=== PATIENT | female | born 1990 | race Caucasian/White ===

== ENCOUNTER 2017-01-20 06:18 | Emergency (ER) | payer BC ==
--- NOTE | 2017-01-20 09:20 | ED NURSING NOTES ---
Clinical Report - Nurses [facility] [place] [address] 01/20/2017 6:18 [id number] TRI[facility] Triage time 06:Jan 20 2017. Acuity: LEVEL 3. Chief Complaint: PELVIC PAIN and VAGINAL DISCHARGE. 06:28 01/20/17. ENRIQUE COMA SCORE: [place] Coma Scale: 15- eyes open spontaneously (4); best verbal response- oriented x 4 (5); best motor response- obeys commands (6). --06:28 Zulay Fairbanks 06:23 01/20/17. BP: 168/88. HR: 97. RR: 18. O2 saturation: 99% on room air. Temp: 98.3 F (oral). Pain level now: 8/10. --06:28 Zulay Fairbanks SEPSIS SCREEN: Sepsis Screen: negative. Infection suspected/documented. Heart rate greater than 90. --06:28 Zulay Fairbanks. Weight: 99.7 kg stated. Height/Length: 62 inches Per Patient. BMI: 40.2. --06:26 Zulay Fairbanks. Medications None. --06:27 Zulay Fairbanks. Allergies Codeine. --06:27 Zulay Fairbanks Amenacycline . --06:27 Zulay Fairbanks. Medication/allergy information source: the patient. --06:28 Zulay Fairbanks. History Arrived by private vehicle. Historian: patient. Accompanied by family. Primary physician ([facility]). Onset. (3 days). ( Patient reports over the last three days she has had pelvic pain. She reports this morning it worsened and she noticed odor and discharge.). 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 PAST MEDICAL HX: Immunizations: up-to-date. Last normal menstrual period- December 01. Sexual history - sexually active. No contraception. SOCIAL HX: Never smoker. Occasional alcohol use. No drug use. No infectious disease exposure. ABUSE ASSESSMENT: No report of abuse. FALL RISK ASSESSMENT: Fall risk assessment completed. No fall risk identified. NUTRITIONAL RISK ASSESSMENT: The nutritional risk assessment revealed no deficiencies. FUNCTIONAL ASSESSMENT: Functional assessment: no impairments noted. LEARNING NEEDS ASSESSMENT: The learning needs assessment revealed no barriers. SKIN INTEGRITY ASSESSMENT: Skin integrity risk assessment completed. No skin integrity risk identified. --:28 Zulay Fairbanks. PROBLEMS: Hypertension. Asthma. --:28 Zulay Fairbanks. ADDITIONAL SURGERIES: no known surgeries. Interventions ID band on patient. To treatment room. --: Zulay Fairbanks. PHYSICAL ASSESSMENT Ambulatory to room. Patient gowned. GENERAL / NEURO / PSYCH: Alert. Oriented X 4. Appears in no acute distress. HEENT: Mucous membranes are pink. RESPIRATORY: Respirations not labored. GI / : A moderate amount of yellow vaginal discharge present. SKIN: Skin is warm and dry. --: Zulay Fairbanks GI / : Abdominal tenderness in the lower abdomen. --:29 Zulay Fairbanks. NURSING PROGRESS NOTES 06:30 01/20/17. Patient gowned. Reassurance given to the patient. Two patient identifiers checked. Call light placed in reach. Side rails up x 1. Bed placed in lowest position. Brakes of bed on. Patient ready for evaluation- chart flagged and ED physician notified. --: Zulay Fairbanks Patient ID band checked for patient name and birthdate: patient confirmed. Instructions provided to collect clean catch urine and patient verbalized understanding. Clean catch urine collected with return of yellow-colored clear urine; sample sent to lab for urinalysis, culture and HCG. Specimen labeled in the presence of the patient. --:30 Zulay Fairbanks PELVIC EXAM: Pelvic exam performed by ED physician. Preparation: pelvic tray; patient placed in lithotomy position. Procedure: speculum and bimanual exam. Specimens collected and sent to lab: GC, chlamydia and wet prep. Status post-procedure: she was stable. Total time of assist / procedure: 15 minutes. --07:15 Zulay Fairbanks Care transferred and report given (Lee Ann). --07:16 Zulay Fairbanks 09:32 01/20/2017 Zithromax PO Tablets 1000 mg given. Allergies verified and confirmed 5 rights. --09:33 Quyen Wan RBatool 09:34 01/20/2017 Rocephin (CefTRIAXone Sodium) IM 250 mg given. Given in the left ventral gluteus. Allergies verified and confirmed 5 rights. --09:34 Quyen Wan R.N. DISPOSITION / DISCHARGE Condition at departure: improved and stable. No learning barriers present. Discharge instructions provided and reviewed with the patient and spouse. Reviewed medication(s) side effects information. Prescription(s) given to the patient. Patient and spouse verbalized understanding. Written instructions provided in Faroese. The patient was discharged home and accompanied by spouse. She left the Emergency Department ambulatory and via private vehicle. Spouse driving. --09:43 Susan Reddy R.N. 09:42 01/20/17. BP: 153/90. HR: 84. RR: 16. O2 saturation: 97%. Temp: 98 F. Pain level now: 02/05. --09:43 Susan Reddy R.N. Departure time: 1000. --10:29 Susan Reddy R.N. Locked/Released at 01/20/2017 10:29 by Susan Reddy R.N.
--- NOTE | 2017-01-20 09:20 | ED CLINICAL REPORT ---
Clinical Report - Physicians/Mid Levels [facility] [address] [place] [address] 01/20/2017 6:18 Patient: AIME BIRD Time Seen: 06:52. Arrived- By private vehicle. Historian- patient. HISTORY OF PRESENT ILLNESS Chief Complaint: PELVIC PAIN. This started about 3 days ago and is still present and now worse. At its maximum, severity described as moderate. When seen in the E.D., severity described as mild. Modifying factors- worsened by movement. Not relieved by anything. It is described as "pain" and it is described as located in the suprapubic area and in the left pelvis. No nausea, loss of appetite, vomiting or diarrhea. (Patient states the pain started about 3 days ago but got worse last night. Patient began to notice that her vaginal discharge has become heavier and developed a peculiar odor. Patient has not had any vaginal bleeding. She is sexually active with her and is not aware of any STD exposure. She has no history of pelvic inflammatory disease or any STDs.). Similar symptoms previously: ( Patient states that she has had this kind of pain with her ovarian cysts previously; however she has not had abnormal discharge before.). Recent medical care: Not recently seen/assessed. REVIEW OF SYSTEMS No constipation, black stools, hematemesis, difficulty with urination or pain with urination. No urinary frequency, bloody stools, fever, headache or sore throat. No blurred vision, chest pain, difficulty breathing, cough or joint pain. No skin rash, chills or back pain. The patient missed her last period. The patient chronically experiences irregular periods. Denies current . All systems otherwise negative, except as recorded above. PAST HISTORY Problems: Hypertension. Asthma. Additional Surgeries: no known surgeries. Medications: None. Allergies: Amenacycline . Codeine. SOCIAL HISTORY Never smoker. Occasional alcohol use. No drug use. ADDITIONAL NOTES The nursing notes have been reviewed. PHYSICAL EXAM Vital Signs: 01/20/2017 06:23 BP: 168/88. HR: 97. RR: 18. O2 saturation: 99%. Temp: 98.3 F. Pain level now: 04/07. Have been reviewed. Appearance: Alert. Oriented X3. No acute distress. Eyes: Pupils equal, round and reactive to light. Eyes normal inspection. ENT: Nose normal. Neck: Normal inspection. CVS: Normal heart rate and rhythm. Heart sounds normal. Pulses normal. Respiratory: No respiratory distress. Breath sounds normal. Abdomen: Soft. Moderate tenderness in the left side of the abdomen (Tenderness is worse in the left lower quadrant.). No guarding or rebound tenderness. No organomegaly. No mass. Moderately obese. Back: Normal inspection. No CVA tenderness. : Normal external exam. A moderate amount of thick and yellow vaginal discharge present. No malodorous vaginal discharge. Moderate right adnexal tenderness; cervical motion tenderness. No left adnexal tenderness. Skin: Skin warm and dry. Normal skin color. No rash. Normal skin turgor. Extremities: Extremities exhibit normal ROM. No lower extremity edema. Neuro: (grossly intact.). LABS, X-RAYS, AND EKG Pelvic Sonogram: Uterus normal. An ovarian cyst is present. No free fluid. No free fluid. No intrauterine . Study type: bedside. Prior studies were not available for comparison. Laboratory Tests: UA-Culture if indicated: (KAYCE: 01/20/2017 06:24) ( [facility] 01/20/2017 07:53) IP Test Result Flag Units (Reference) URINE COLOR YELLOW URINE APPEARANCE CLEAR URINE GLUCOSE NEGATIVE (NEGATIVE) URINE BILIRUBIN NEGATIVE (NEGATIVE) URINE KETONE NEGATIVE (NEGATIVE) URINE SPECIFIC GRAVITY 1.020 (1.010-1.030) URINE PH 5.5 (5.0-8.0) URINE PROTEIN NEGATIVE (NEGATIVE) URINE UROBILINOGEN 0.2 EU/dL (0.2-1.0) URINE NITRITE NEGATIVE (NEGATIVE) URINE BLOOD NEGATIVE (NEGATIVE) URINE LEUK ESTERASE NEGATIVE (NEGATIVE) Urine: (KAYCE: 01/20/2017 06:24) ( [facility] 01/20/2017 07:53) Final results Test Result Flag Units (Reference) URINE NEGATIVE Wet Prep: (KAYCE: 01/20/2017 07:05) ( [facility] 01/20/2017 07:36) Final results SPECIMEN DESCRIPTION: SWAB Test Result Flag Units (Reference) WET MOUNT CLUE CELLS:: NONE EPITHELIAL CELLS: FEW -- SOURCE?: VAG WHITE BLOOD CELLS: MODERATE TRICHOMONAS:: NONE -- YEAST:: NONE . Pulse Oximetry: 01/20/2017 06:23 O2 saturation: 99%. (FIO2 - room air). Interpretation: normal. PROGRESS AND PROCEDURES Course of Care: The patient was low risk for STD exposure given that she was monogamous with her . However I did feel that she should be worked up anyway given her symptoms so a wet mount and GC chlamydia swab were sent. Patient declined any analgesia in the emergency department, stating that right now her pain is doing a little better. UA and US were unremarkable, other than a small L ovarian cyst. Wet mount also showed no infection. I did treat pt with Rocephin and Zithromax, based on the pt's CMT and c/o increased and malodorous vaginal d/c. Patient and spouse counseled in person regarding the patient's stable condition, test results, diagnosis and need for follow-up. Concerns were addressed. Old medical records reviewed. Disposition: Discharged. Condition: stable. CLINICAL IMPRESSION Single simple left ovarian cyst. No torsion of ovary. Possible acute pelvic inflammatory disease. No peritonitis. INSTRUCTIONS Drink plenty of fluids. Warnings: GENERAL WARNINGS: Return or contact your physician immediately if your condition worsens or changes unexpectedly, if not improving as expected, or if other problems arise. Prescription Medications: Hydrocodone/APAP 5mg / 325mg: take 1 orally every 6 hours as needed for pain. Dispense ten (10). No refill. Understanding of the discharge instructions verbalized by patient. Follow-up with: Sam Ramos MD, Obstetrics/Gynecology, , [facility], [address] [place] [address] Follow up as needed. (Electronically signed by Madison Peacock MD 01/24/2017 15:08)
--- NOTE | 2017-01-20 09:20 | ED CLINICAL REPORT ---
Clinical Report - Physicians/Mid Levels [facility] [address] [place] [address] 01/20/2017 6:18 Patient: AIME BIRD Time Seen: 06:52. Arrived- By private vehicle. Historian- patient. HISTORY OF PRESENT ILLNESS Chief Complaint: PELVIC PAIN. This started about 3 days ago and is still present and now worse. At its maximum, severity described as moderate. When seen in the E.D., severity described as mild. Modifying factors- worsened by movement. Not relieved by anything. It is described as "pain" and it is described as located in the suprapubic area and in the left pelvis. No nausea, loss of appetite, vomiting or diarrhea. (Patient states the pain started about 3 days ago but got worse last night. Patient began to notice that her vaginal discharge has become heavier and developed a peculiar odor. Patient has not had any vaginal bleeding. She is sexually active with her and is not aware of any STD exposure. She has no history of pelvic inflammatory disease or any STDs.). Similar symptoms previously: ( Patient states that she has had this kind of pain with her ovarian cysts previously; however she has not had abnormal discharge before.). Recent medical care: Not recently seen/assessed. REVIEW OF SYSTEMS No constipation, black stools, hematemesis, difficulty with urination or pain with urination. No urinary frequency, bloody stools, fever, headache or sore throat. No blurred vision, chest pain, difficulty breathing, cough or joint pain. No skin rash, chills or back pain. The patient missed her last period. The patient chronically experiences irregular periods. Denies current . All systems otherwise negative, except as recorded above. PAST HISTORY Problems: Hypertension. Asthma. Additional Surgeries: no known surgeries. Medications: None. Allergies: Amenacycline . Codeine. SOCIAL HISTORY Never smoker. Occasional alcohol use. No drug use. ADDITIONAL NOTES The nursing notes have been reviewed. PHYSICAL EXAM Vital Signs: 01/20/2017 06:23 BP: 168/88. HR: 97. RR: 18. O2 saturation: 99%. Temp: 98.3 F. Pain level now: 04/07. Have been reviewed. Appearance: Alert. Oriented X3. No acute distress. Eyes: Pupils equal, round and reactive to light. Eyes normal inspection. ENT: Nose normal. Neck: Normal inspection. CVS: Normal heart rate and rhythm. Heart sounds normal. Pulses normal. Respiratory: No respiratory distress. Breath sounds normal. Abdomen: Soft. Moderate tenderness in the left side of the abdomen (Tenderness is worse in the left lower quadrant.). No guarding or rebound tenderness. No organomegaly. No mass. Moderately obese. Back: Normal inspection. No CVA tenderness. : Normal external exam. A moderate amount of thick and yellow vaginal discharge present. No malodorous vaginal discharge. Moderate right adnexal tenderness; cervical motion tenderness. No left adnexal tenderness. Skin: Skin warm and dry. Normal skin color. No rash. Normal skin turgor. Extremities: Extremities exhibit normal ROM. No lower extremity edema. Neuro: (grossly intact.). LABS, X-RAYS, AND EKG Pelvic Sonogram: Uterus normal. An ovarian cyst is present. No free fluid. No free fluid. No intrauterine . Study type: bedside. Prior studies were not available for comparison. Laboratory Tests: UA-Culture if indicated: (KAYCE: 01/20/2017 06:24) ( [facility] 01/20/2017 07:53) IP Test Result Flag Units (Reference) URINE COLOR YELLOW URINE APPEARANCE CLEAR URINE GLUCOSE NEGATIVE (NEGATIVE) URINE BILIRUBIN NEGATIVE (NEGATIVE) URINE KETONE NEGATIVE (NEGATIVE) URINE SPECIFIC GRAVITY 1.020 (1.010-1.030) URINE PH 5.5 (5.0-8.0) URINE PROTEIN NEGATIVE (NEGATIVE) URINE UROBILINOGEN 0.2 EU/dL (0.2-1.0) URINE NITRITE NEGATIVE (NEGATIVE) URINE BLOOD NEGATIVE (NEGATIVE) URINE LEUK ESTERASE NEGATIVE (NEGATIVE) Urine: (KAYCE: 01/20/2017 06:24) ( [facility] 01/20/2017 07:53) Final results Test Result Flag Units (Reference) URINE NEGATIVE Wet Prep: (KAYCE: 01/20/2017 07:05) ( [facility] 01/20/2017 07:36) Final results SPECIMEN DESCRIPTION: SWAB Test Result Flag Units (Reference) WET MOUNT CLUE CELLS:: NONE EPITHELIAL CELLS: FEW -- SOURCE?: VAG WHITE BLOOD CELLS: MODERATE TRICHOMONAS:: NONE -- YEAST:: NONE . Pulse Oximetry: 01/20/2017 06:23 O2 saturation: 99%. (FIO2 - room air). Interpretation: normal. PROGRESS AND PROCEDURES Course of Care: The patient was low risk for STD exposure given that she was monogamous with her . However I did feel that she should be worked up anyway given her symptoms so a wet mount and GC chlamydia swab were sent. Patient declined any analgesia in the emergency department, stating that right now her pain is doing a little better. UA and US were unremarkable, other than a small L ovarian cyst. Wet mount also showed no infection. I did treat pt with Rocephin and Zithromax, based on the pt's CMT and c/o increased and malodorous vaginal d/c. Patient and spouse counseled in person regarding the patient's stable condition, test results, diagnosis and need for follow-up. Concerns were addressed. Old medical records reviewed. Disposition: Discharged. Condition: stable. CLINICAL IMPRESSION Single simple left ovarian cyst. No torsion of ovary. Possible acute pelvic inflammatory disease. No peritonitis. INSTRUCTIONS Drink plenty of fluids. Warnings: GENERAL WARNINGS: Return or contact your physician immediately if your condition worsens or changes unexpectedly, if not improving as expected, or if other problems arise. Prescription Medications: Hydrocodone/APAP 5mg / 325mg: take 1 orally every 6 hours as needed for pain. Dispense ten (10). No refill. Understanding of the discharge instructions verbalized by patient. Follow-up with: Sam Ramos MD, Obstetrics/Gynecology, , [facility], [address] [place] [address] Follow up as needed. (Electronically signed by Madison Peacock MD 01/24/2017 15:08)
--- NOTE | 2017-01-20 09:20 | ED ORDER SUMMARY ---
..... Patient: AIME BIRD OrderSheet [facility] VisitID: [id number] [place] [address] 26y, F Registration Date/Time: 01/20/2017 ORDER SHEET Weight: 99.7 kg (stated) Allergies: Codeine, Amenacycline GENERAL ORDERS: GC/Chlamydia (Cervix) (swab) Urgent (07:01/20/2017 Adrien HAIR) (7:49 CLARISAoeabdiaziz) Wet Prep (Vaginal) (swab) Urgent (07:01/20/2017 Adrien HAIR) (7:49 CLARISAoeabdiaziz) UA-Culture if indicated Urgent (:01/20/2017 Adrien HAIR) (Ack 7:15 HSoule) (7:49 CLARISAoeabdiaziz) Urine Urgent (07:01/20/2017 Adrien HAIR) (7:49 CLARISAoeabdiaziz) US Pelvic Complete w Transvag Urgent (08:21 01/20/2017 Adrien HAIR) (Ack 8:22 Riaz) (9:34 Sally R.N.) MEDICATION ORDERS: Rocephin IM 250 mg (NOW) (09:18 01/20/2017 Adrien HAIR) (Ack 9:20 Sally R.N.) (9:34 Sally R.N.) Zithromax PO 1000 mg (NOW) (09:01/20/2017 Adrien HAIR) (Ack 9:20 Sally R.N.) (9:32 Sally R.N.) IV FLUIDS: ORDER SHEET NOTES: [Electronically signed by Susan Reddy R.N. (10:01/20/2017)] [Electronically signed by Madison Peacock MD (15:08 01/24/2017)] [Electronically locked/signed by Susan Reddy R.N. (:01/20/2017)]
--- NOTE | 2017-01-20 09:20 | ED ORDER SUMMARY ---
..... Patient: AIME BIRD OrderSheet [facility] VisitID: [id number] [place] [address] 26y, F Registration Date/Time: 01/20/2017 ORDER SHEET Weight: 99.7 kg (stated) Allergies: Codeine, Amenacycline GENERAL ORDERS: GC/Chlamydia (Cervix) (swab) Urgent (07:01/20/2017 Adrien HAIR) (7:49 CLARISAoeabdiaziz) Wet Prep (Vaginal) (swab) Urgent (07:01/20/2017 Adrien HAIR) (7:49 CLARISAoeabdiaziz) UA-Culture if indicated Urgent (:01/20/2017 Adrien HAIR) (Ack 7:15 HSoule) (7:49 CLARISAoeabdiaziz) Urine Urgent (07:01/20/2017 Adrien HAIR) (7:49 CLARISAoeabdiaziz) US Pelvic Complete w Transvag Urgent (08:21 01/20/2017 Adrien HAIR) (Ack 8:22 Riaz) (9:34 Sally R.N.) MEDICATION ORDERS: Rocephin IM 250 mg (NOW) (09:18 01/20/2017 Adrien HAIR) (Ack 9:20 Sally R.N.) (9:34 Sally R.N.) Zithromax PO 1000 mg (NOW) (09:01/20/2017 Adrien HAIR) (Ack 9:20 Sally R.N.) (9:32 Sally R.N.) IV FLUIDS: ORDER SHEET NOTES: [Electronically signed by Susan Reddy R.N. (10:01/20/2017)] [Electronically signed by Madison Peacock MD (15:08 01/24/2017)] [Electronically locked/signed by Susan Reddy R.N. (:01/20/2017)]
--- NOTE | 2017-01-20 09:20 | ED NURSING NOTES ---
Clinical Report - Nurses [facility] [place] [address] 01/20/2017 6:18 [facility]IRD [id number] TRIAGE Triage time 06:Jan 20 2017. Acuity: LEVEL 3. Chief Complaint: PELVIC PAIN and VAGINAL DISCHARGE. 06:28 01/20/17. ENRIQUE COMA SCORE: [place] Coma Scale: 15- eyes open spontaneously (4); best verbal response- oriented x 4 (5); best motor response- obeys commands (6). --06:28 Zulay Fairbanks 06:23 01/20/17. BP: 168/88. HR: 97. RR: 18. O2 saturation: 99% on room air. Temp: 98.3 F (oral). Pain level now: 8/10. --06:28 Zulay Fairbanks SEPSIS SCREEN: Sepsis Screen: negative. Infection suspected/documented. Heart rate greater than 90. --06:28 Zulay Fairbanks. Weight: 99.7 kg stated. Height/Length: 62 inches Per Patient. BMI: 40.2. --06:26 Zulay Fairbanks. Medications None. --06:27 Zulay Fairbanks. Allergies Codeine. --06:27 Zulay Fairbanks Amenacycline . --06:27 Zulay Fairbanks. Medication/allergy information source: the patient. --06:28 Zulay Fairbanks. History Arrived by private vehicle. Historian: patient. Accompanied by family. Primary physician ([facility]). Onset. (3 days). ( Patient reports over the last three days she has had pelvic pain. She reports this morning it worsened and she noticed odor and discharge.). 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 PAST MEDICAL HX: Immunizations: up-to-date. Last normal menstrual period- December 01. Sexual history - sexually active. No contraception. SOCIAL HX: Never smoker. Occasional alcohol use. No drug use. No infectious disease exposure. ABUSE ASSESSMENT: No report of abuse. FALL RISK ASSESSMENT: Fall risk assessment completed. No fall risk identified. NUTRITIONAL RISK ASSESSMENT: The nutritional risk assessment revealed no deficiencies. FUNCTIONAL ASSESSMENT: Functional assessment: no impairments noted. LEARNING NEEDS ASSESSMENT: The learning needs assessment revealed no barriers. SKIN INTEGRITY ASSESSMENT: Skin integrity risk assessment completed. No skin integrity risk identified. --:28 Zulay Fairbanks. PROBLEMS: Hypertension. Asthma. --:28 Zulay Fairbanks. ADDITIONAL SURGERIES: no known surgeries. Interventions ID band on patient. To treatment room. --: Zulay Fairbanks. PHYSICAL ASSESSMENT Ambulatory to room. Patient gowned. GENERAL / NEURO / PSYCH: Alert. Oriented X 4. Appears in no acute distress. HEENT: Mucous membranes are pink. RESPIRATORY: Respirations not labored. GI / : A moderate amount of yellow vaginal discharge present. SKIN: Skin is warm and dry. --: Zualy Fairbanks GI / : Abdominal tenderness in the lower abdomen. --:29 Zulay Fairbanks. NURSING PROGRESS NOTES 06:30 01/20/17. Patient gowned. Reassurance given to the patient. Two patient identifiers checked. Call light placed in reach. Side rails up x 1. Bed placed in lowest position. Brakes of bed on. Patient ready for evaluation- chart flagged and ED physician notified. --: Zulay Fairbanks Patient ID band checked for patient name and birthdate: patient confirmed. Instructions provided to collect clean catch urine and patient verbalized understanding. Clean catch urine collected with return of yellow-colored clear urine; sample sent to lab for urinalysis, culture and HCG. Specimen labeled in the presence of the patient. --:30 Zulay Fairbanks PELVIC EXAM: Pelvic exam performed by ED physician. Preparation: pelvic tray; patient placed in lithotomy position. Procedure: speculum and bimanual exam. Specimens collected and sent to lab: GC, chlamydia and wet prep. Status post-procedure: she was stable. Total time of assist / procedure: 15 minutes. --07:15 Zulay Fairbanks Care transferred and report given (Lee Ann). --07:16 Zulay Fairbanks 09:32 01/20/2017 Zithromax PO Tablets 1000 mg given. Allergies verified and confirmed 5 rights. --09:33 Quyen Wan RBatool 09:34 01/20/2017 Rocephin (CefTRIAXone Sodium) IM 250 mg given. Given in the left ventral gluteus. Allergies verified and confirmed 5 rights. --09:34 Quyen Wan R.N. DISPOSITION / DISCHARGE Condition at departure: improved and stable. No learning barriers present. Discharge instructions provided and reviewed with the patient and spouse. Reviewed medication(s) side effects information. Prescription(s) given to the patient. Patient and spouse verbalized understanding. Written instructions provided in Persian. The patient was discharged home and accompanied by spouse. She left the Emergency Department ambulatory and via private vehicle. Spouse driving. --09:43 Susan Reddy R.N. 09:42 01/20/17. BP: 153/90. HR: 84. RR: 16. O2 saturation: 97%. Temp: 98 F. Pain level now: 02/05. --09:43 Susan Reddy R.N. Departure time: 1000. --10:29 Susan Reddy R.N. Locked/Released at 01/20/2017 10:29 by Susan Reddy R.N.
--- NOTE | 2017-01-20 09:40 | DIAGNOSTIC IMAGING REPORT ---
PROCEDURE: US COMPLETE PELVIC W/TRANSVAG INDICATION: Left pelvic pain. TECHNIQUE: Transabdominal and endovaginal jaquez scale and color Doppler sonographic images of the female pelvis were obtained. COMPARISON: None. FINDINGS: TRANSABDOMINAL SCANS: Bladder and kidneys are unremarkable. No pelvic mass. TRANSVAGINAL SCANS: Anteverted uterus measures 4.6 x 2.9 x 4.1 cm. Myometrium is unremarkable. Endometrium measures 5.2 mm. Left ovary measures 4.7 x 4.2 x 3 cm with a 3.5 cm hypoechoic mass with internal echoes consistent with a hemorrhagic cyst with adjacent trace free fluid. Right ovary measures 2.7 x 2.2 x 1.5 cm. Vascular flow to both ovaries. IMPRESSION: 1. 3.5 cm left ovarian hemorrhagic cyst with trace free fluid
--- NOTE | 2017-01-24 15:08 | ED DISCHARGE INSTRUCTIONS ---
Patient: AIME BIRD General Instructions [facility] VisitID: [id number] [place] [id number] 26y, F Registration Date/Time: 01/20/2017 Single simple left ovarian cyst. No torsion of ovary. INSTRUCTIONS Drink plenty of fluids. Warnings: GENERAL WARNINGS: Return or contact your physician immediately if your condition worsens or changes unexpectedly, if not improving as expected, or if other problems arise. Prescription Medications: Hydrocodone/APAP 5mg / 325mg: take 1 orally every 6 hours as needed for pain. Dispense ten (10). No refill. Understanding of the discharge instructions verbalized by patient. Follow-up with: Sam Ramos MD, Obstetrics/Gynecology, , [facility], [address] [place] [id number] Follow up as needed. ADDITIONAL INFORMATION Ovarian Cyst The ovary is a small organ located on each side of the uterus. During each menstrual cycle a tiny egg sac forms in the ovary. If the egg is released but does not occur, this sac usually dissolves. Sometimes, the sac may fill with fluid. It then enlarges into a painful cyst. Usually the cyst will rupture or shrink on its own. In either case, the pain gradually goes away over the next 1-3 days. If the cyst does not shrink or rupture, it may cause continued pain. Home Care: Rest in bed and avoid heavy exertion until you are feeling better. Heat to the lower abdomen usually helps (heating pad or hot packs -- a small towel soaked in hot water). You may use acetaminophen (Tylenol) or ibuprofen (Motrin, Advil) to control pain, unless another pain medicine was prescribed. [NOTE: If you have chronic liver or kidney disease or ever had a stomach ulcer or GI bleeding, talk with your doctor before using these medicines.] Follow Up: See your doctor within the next 2-3 days if your pain doesnt improve. Otherwise, follow up with your doctor after your next period or as directed by our staff. Get Prompt Medical Attention if any of the following occur: Pain worsens or fails to respond to the above measures Fever of 100.4F (38C) or higher, or as directed by your healthcare provider Heavy vaginal bleeding (soaking one pad an hour for three hours) You feel weak or dizzy Fainting Passage of a pink or jaquez tissue with menstrual bleeding Pelvic Pain, Uncertain Cause Based on your visit today, the exact cause of your pelvic pain is not certain. But your condition does not appear to be serious at this time. However, the signs of a serious problem may take more time to appear. Therefore, it is important for you to watch for any new symptoms or worsening of your condition. Home Care: Rest until you are feeling better. Avoid sexual intercourse until your pain goes away. You may use acetaminophen (Tylenol) or ibuprofen (Motrin, Advil) to control pain, unless another medicine was prescribed. [NOTE: If you have chronic liver or kidney disease or ever had a stomach ulcer or GI bleeding, talk with your doctor before using these medicines.] Follow Up with your doctor as advised. If a culture test was taken, call in two days for the results. If the culture is positive, you will be given more advice at that time. Otherwise, follow-up with your doctor or this facility as instructed. Get Prompt Medical Attention if any of the following occur: Fever of 100.4F (38C) or higher, or as directed by your healthcare provider Vaginal discharge Worsening pain Weakness, dizziness or fainting Unexpected vaginal bleeding or passage of jaquez or white tissue from the vagina Pain that moves to the right lower abdomen You have been given the following additional information: Ovarian Cyst Pelvic Pain, Unknown Cause (Electronically signed by Madison Peacock MD 01/24/2017 15:08)
--- NOTE | 2017-01-24 15:08 | ED MED RECONCILIATION SUMMARY ---
Patient: AIME BIRD Medication Reconciliation Report [facility] VisitID: [id number] [address] [place] [address] 26y, F Registration Date/Time: 01/20/2017 Weight: 99.7 kg Height/Length: 62 in. BMI: 40.2 ALLERGIES: Amenacycline , Codeine The patient's Home Medications are listed below: NONE. The source(s) of the original Home Medication information: patient The following Medications were given to the patient in the Emergency Department: Zithromax [PO] PO 1000 mg, administered: 01/20/2017 9:32:00 AM Rocephin [IM] IM 250 mg, administered: 01/20/2017 9:34:00 AM The following Medications were prescribed to the patient: Hydrocodone/APAP 5mg / 325mg: take 1 orally every 6 hours as needed for pain. Dispense ten (10). No refill. -- Madison Peacock MD
--- NOTE | 2017-01-24 15:08 | ED MAR SUMMARY ---
..... Medication Administration Record [facility] [address] [place] [address] Patient: AIME BIRD Visit ID: [id number] 26y, F Weight: 99.7 kg Height/Length: 62 in BMI: 40.2 ALLERGIES: Amenacycline , Codeine Given 09:32 01/20/2017 Quyen Wan, RLottieN. Medication Administered: ZITHROMAX [PO], Dose: 1000 mg Tablets PO. Medication Ordered: Zithromax PO 1000 mg (NOW). Given 09:34 01/20/2017 Quyen Wan, R.N. Medication Administered: ROCEPHIN [IM] (CEFTRIAXONE SODIUM), Dose: 250 mg IM. Medication Ordered: Rocephin IM 250 mg (NOW).
--- NOTE | 2017-01-24 15:08 | ED DISCHARGE INSTRUCTIONS ---
Patient: AIME BIRD General Instructions [facility] VisitID: [id number] [place] [id number] 26y, F Registration Date/Time: 01/20/2017 Single simple left ovarian cyst. No torsion of ovary. INSTRUCTIONS Drink plenty of fluids. Warnings: GENERAL WARNINGS: Return or contact your physician immediately if your condition worsens or changes unexpectedly, if not improving as expected, or if other problems arise. Prescription Medications: Hydrocodone/APAP 5mg / 325mg: take 1 orally every 6 hours as needed for pain. Dispense ten (10). No refill. Understanding of the discharge instructions verbalized by patient. Follow-up with: Sam Ramos MD, Obstetrics/Gynecology, , [facility], [address] [place] [address] Follow up as needed. ADDITIONAL INFORMATION Ovarian Cyst The ovary is a small organ located on each side of the uterus. During each menstrual cycle a tiny egg sac forms in the ovary. If the egg is released but does not occur, this sac usually dissolves. Sometimes, the sac may fill with fluid. It then enlarges into a painful cyst. Usually the cyst will rupture or shrink on its own. In either case, the pain gradually goes away over the next 1-3 days. If the cyst does not shrink or rupture, it may cause continued pain. Home Care: Rest in bed and avoid heavy exertion until you are feeling better. Heat to the lower abdomen usually helps (heating pad or hot packs -- a small towel soaked in hot water). You may use acetaminophen (Tylenol) or ibuprofen (Motrin, Advil) to control pain, unless another pain medicine was prescribed. [NOTE: If you have chronic liver or kidney disease or ever had a stomach ulcer or GI bleeding, talk with your doctor before using these medicines.] Follow Up: See your doctor within the next 2-3 days if your pain doesnt improve. Otherwise, follow up with your doctor after your next period or as directed by our staff. Get Prompt Medical Attention if any of the following occur: Pain worsens or fails to respond to the above measures Fever of 100.4F (38C) or higher, or as directed by your healthcare provider Heavy vaginal bleeding (soaking one pad an hour for three hours) You feel weak or dizzy Fainting Passage of a pink or jaquez tissue with menstrual bleeding Pelvic Pain, Uncertain Cause Based on your visit today, the exact cause of your pelvic pain is not certain. But your condition does not appear to be serious at this time. However, the signs of a serious problem may take more time to appear. Therefore, it is important for you to watch for any new symptoms or worsening of your condition. Home Care: Rest until you are feeling better. Avoid sexual intercourse until your pain goes away. You may use acetaminophen (Tylenol) or ibuprofen (Motrin, Advil) to control pain, unless another medicine was prescribed. [NOTE: If you have chronic liver or kidney disease or ever had a stomach ulcer or GI bleeding, talk with your doctor before using these medicines.] Follow Up with your doctor as advised. If a culture test was taken, call in two days for the results. If the culture is positive, you will be given more advice at that time. Otherwise, follow-up with your doctor or this facility as instructed. Get Prompt Medical Attention if any of the following occur: Fever of 100.4F (38C) or higher, or as directed by your healthcare provider Vaginal discharge Worsening pain Weakness, dizziness or fainting Unexpected vaginal bleeding or passage of jaquez or white tissue from the vagina Pain that moves to the right lower abdomen You have been given the following additional information: Ovarian Cyst Pelvic Pain, Unknown Cause (Electronically signed by Madison Peacock MD 01/24/2017 15:08)
--- NOTE | 2017-01-24 15:08 | ED MED RECONCILIATION SUMMARY ---
Patient: AIME BIRD Medication Reconciliation Report [facility] VisitID: [id number] [address] [place] [address] 26y, F Registration Date/Time: 01/20/2017 Weight: 99.7 kg Height/Length: 62 in. BMI: 40.2 ALLERGIES: Amenacycline , Codeine The patient's Home Medications are listed below: NONE. The source(s) of the original Home Medication information: patient The following Medications were given to the patient in the Emergency Department: Zithromax [PO] PO 1000 mg, administered: 01/20/2017 9:32:00 AM Rocephin [IM] IM 250 mg, administered: 01/20/2017 9:34:00 AM The following Medications were prescribed to the patient: Hydrocodone/APAP 5mg / 325mg: take 1 orally every 6 hours as needed for pain. Dispense ten (10). No refill. -- Madison Peacock MD
--- NOTE | 2017-01-24 15:08 | ED MAR SUMMARY ---
..... Medication Administration Record [facility] [address] [place] [address] Patient: AIME BIRD Visit ID: [id number] 26y, F Weight: 99.7 kg Height/Length: 62 in BMI: 40.2 ALLERGIES: Amenacycline , Codeine Given 09:32 01/20/2017 Quyen Wan, RLottieN. Medication Administered: ZITHROMAX [PO], Dose: 1000 mg Tablets PO. Medication Ordered: Zithromax PO 1000 mg (NOW). Given 09:34 01/20/2017 Quyen Wan, R.N. Medication Administered: ROCEPHIN [IM] (CEFTRIAXONE SODIUM), Dose: 250 mg IM. Medication Ordered: Rocephin IM 250 mg (NOW).
== END 2017-01-20 10:00 | disposition home or self-care (01) ==
LOC: ED SRH 06:18
DX: N83.292 Other ovarian cyst, left side (principal); I10 Essential (primary) hypertension; Z88.5 Allergy status to narcotic agent
CPT/HCPCS: 90004; 90195; 91227; 91228; 93070